=== PATIENT | female | born 1980 ===

== ENCOUNTER 2022-08-25 15:56 | Emergency (ER) | payer OTHER ==
[~2022-08-25] VITALS: Ht 157.5 cm; Wt 58.1 kg
[2022-08-25 16:03] VITALS: BP 143/79; TEMP 98.8
== END 2022-08-25 17:08 | disposition home or self-care (01) ==
LOC: ED 15:56
DX: N39.0 Urinary tract infection, site not specified (principal)
CPT/HCPCS: 81000; 81025; 87086; 87088; 99283

== ENCOUNTER 2022-11-15 17:21 | Outpatient (CLI) | payer OTHER | END 2022-11-15 19:20 | disposition home or self-care (01) | LOC: RAD 17:21 | PROVIDERS: ATTEND Nurse Practitioner Family | DX: M54.6 Pain in thoracic spine (principal) ==